=== PATIENT | male | born 1955 | race Hispanic/Latino ===

== ENCOUNTER 2022-03-18 08:40 | Day surgery (SDC) | payer OTHER ==
[~2022-03-18 08:40] MED LIST: LACTATED RINGERS 1,000 ML IV SCH; MIDAZOLAM 2 MG/2 ML INJ IV NR
--- NOTE | 2022-03-18 09:24 | Anesthesia Consultation ---
Anesthesia Consult and Med Hx Date of service: 03/18/22 - Airway Anesthetic Teeth Evaluation: Good ROM Head & Neck: Adequate Mental/Hyoid Distance: Adequate Mallampati Class: Class II Intubation Access Assessment: Probably Good - Pre-Operative Health Status ASA Pre-Surgery Classification: ASA2 Proposed Anesthetic Plan: General - Pulmonary Hx Smoking: No Hx Respiratory Symptoms: No - Cardiovascular System Hx Hypertension: Yes - Central Nervous System CVA: No - Endocrine Hx Renal Disease: No Hx Liver Disease: No Hx Insulin Dependent Diabetes: No Hx Non-Insulin Dependent Diabetes: No Hx Thyroid Disease: No - Additional Comments Anesthesia Medical History Comments: No hx anesthetic complications.
--- NOTE | 2022-03-18 09:24 | Anesthesia Day of Surgery ---
Anesthesia Day of Surgery - Day of Surgery Patient Examined: Yes Patient H&P Reviewed: Yes Patient is NPO: Yes
[2022-03-18] MEDS ORDERED: ceFAZolin/STERILE WATER 2 GM/20 ML SYRINGE IV NR (09:30)
[2022-03-18] MEDS ORDERED: ceFAZolin/Water 2 GM/20 ML 2 GM/20 ML SYRINGE IV ONE (09:50)
[2022-03-18] MEDS ORDERED: HYDROmorphone 0.5 MG/0.5 ML INJ IV PRN (10:00)
[2022-03-18] MEDS ORDERED: ONDANSETRON 4 MG/2 ML INJ IV PRN (10:00)
[2022-03-18] MEDS ORDERED: HYDROcodone/ACETAMINOPHEN 5-325 MG TAB PO PRN (10:00)
[2022-03-18] MEDS ORDERED: ONDANSETRON 4 MG/2 ML INJ ONE (11:19)
[2022-03-18] MEDS ORDERED: LIDOCAINE MPF (2%) 20 MG/1 ML VIAL 5 ML ONE (11:19)
[2022-03-18] MEDS ORDERED: fentaNYL 100 MCG/2 ML INJ ONE (11:20)
[2022-03-18] MEDS ORDERED: propofoL 200 MG/20 ML VIAL IV ONE (11:20)
[2022-03-18] MEDS ORDERED: dexAMETHasone 20 MG/5 ML VIAL ONE ×2 (11:50→12:04)
[2022-03-18] MEDS ORDERED: WATER FOR IRRIG STERILE 2000 ML IR ONE (12:19)
--- NOTE | 2022-03-18 12:24 | Short Stay Summary ---
Short Stay Documentation Date of service: 03/18/22 - History H&P: obtained from office - Allergies and Medications Current Medications: Allergies No Known Allergies Allergy (Unverified 03/18/22 09:13) Active Medications Hydrocodone Bitart/Acetaminophen (Hydrocodone/Acetaminophen 5-325 Mg Tab) 2 each PO ONCE PRN PRN Reason: Pain, Moderate (4-6) Hydromorphone HCl (Hydromorphone 0.5 Mg/0.5 Ml Inj) 0.5 mg IV Q10MIN PRN PRN Reason: Pain , Severe (7-10) Lactated Ringer's (Lactated Ringers) 1,000 mls @ 100 mls/hr IV DIRECT MILENA Stop: 03/18/22 23:59 Midazolam HCl (Midazolam 2 Mg/2 Ml Inj) 2 mg IV PREOP NR Stop: 03/18/22 23:59 Ondansetron HCl (Ondansetron 4 Mg/2 Ml Inj) 4 mg IV ONCE PRN PRN Reason: Nausea And Vomiting - Brief post op/procedure progress note Date of procedure: 03/18/22 Pre-op diagnosis: rt ureteral stone Post-op diagnosis: same Procedure: cysto, rpg uretersocopy slazer stone extraction stent with external string Anesthesia: RACHAEL Surgeon: ABBI AGUAYO Condition: stable - Hospital course Hospital course: pt has meds/give post op info on chart - Disposition Condition at discharge: Stable Disposition: 01 HOME / SELF CARE / HOMELESS Short Stay Discharge Plan Follow up with: DAYANA HUYNH MD [Primary Care Provider] - 7 Days
--- NOTE | 2022-03-18 14:27 | Post Anesthesia Evaluation ---
- Post Anesthesia Evaluation Patient Participated: Yes Airway Patent: Yes Stable Respiratory Function: Yes Nausea/Vomiting: No Temp > 96.8F: Yes Pain Manageable: Yes Adequeate Hydration: Yes Anesthesia Complications: No
--- NOTE | 2022-03-18 14:28 | Fluoroscopy Report ---
4 fluoroscopic images submitted Indication: Intraoperative localization Impression: 4 images of the abdomen were submitted for documentation purposes with radiology involve ment. Bilateral retrograde pyelograms were performed utilizing 50 mL of Omnipaque 300. Right-sided d ouble-J ureteral stent was placed. Please refer to the operative note for complete details. Fluoroscopic time: 0.6 minutes Signer Name: Willis Capps MD Signed: 03/18/2022 2:24 PM Workstation Name: [id number]
[2022-03-18 14:48] VITALS: BP 159/87
--- NOTE | 2022-04-14 18:22 | Operative Report ---
DATE OF SURGERY: 03/18/2022 PREOPERATIVE DIAGNOSIS: Right ureteral stone, 6 mm. POSTOPERATIVE DIAGNOSIS: Right ureteral stone, 6 mm. PROCEDURES PERFORMED: Cystoscopy, bilateral retrograde pyelograms, right ureteroscopy, holmium laser lithotripsy and basket stone extraction. SURGEON: Gunnar Hill MD. ANESTHESIA: General. ESTIMATED BLOOD LOSS: Minimal. FLUIDS: Crystalloid. COMPLICATIONS: No complications. INDICATIONS: This is a 66-year-old gentleman seen in the office for right flank pain. CT of abdomen and pelvis revealed a 6 mm right stone. Conservative trial was unsuccessful. He presents now for surgical intervention. Risks, benefits and complications were explained. DESCRIPTION OF PROCEDURE: The patient was taken to the operative suite and placed in a supine position. After adequate general anesthesia, placed in a dorsal lithotomy position, prepped and draped in a sterile fashion. Pancystourethroscopy was performed with a 22-Maltese Storz cystoscope, no urethral abnormalities. His prostate revealed some mild prostatic obstruction. Both ureteral orifices were in normal position. No tumors or stones were noted in the bladder. Bilateral retrograde pyelograms were obtained with an 8-Maltese Julián catheter and 8 mL of contrast. No filling defects or obstruction on the left. Right side had obvious mid-ureteral stone. Two 0.035 Glidewires were placed. Rigid ureteroscopy into the right renal pelvis and stone was engaged. Holmium laser lithotripsy with 200 micron fiber, the stone was extracted with Isha basket without difficulty. A 6-Maltese 24 cm double-J stent with an external string was placed. Rectal exam was benign. He was extubated and taken to recovery room. He will go home on [place] and [place] and follow up in the office. TID: [id number] RECEIPT: [id number] INDER/DUY
== END 2022-03-18 13:20 | disposition home or self-care (01) ==
LOC: OR 08:40
PROVIDERS: ATTEND Urology
DX: N20.1 Calculus of ureter (principal); I10 Essential (primary) hypertension; Z79.899 Other long term (current) drug therapy
CPT/HCPCS: 52356; 74420; C1758; C1769; C1889; J0690; J1100; J2250; J2405; J2704; J3010; J7120; Q9967